=== PATIENT | male | born 1955 | race Caucasian/White ===

== ENCOUNTER 2020-02-16 13:20 | Emergency (ER) | payer MEDICARE, OTHER, SELFPAY ==
[2020-02-16 13:29] VITALS: BP 123/81; PULSE 73; RESP 17; TEMP 36.9; O2SAT 98; BMI 22.1
--- NOTE | 2020-02-16 13:51 | ED_ITS ---
HPI - Arrhythmia/Palpitations General: Chief Complaint: Arrhythmia/Palpitations Stated Complaint: pace maker going off Time Seen by Provider: 02/16/20 13:37 History of Present Illness: HPI narrative: 65-year-old male presents emergency room with complains of a sensation in his chest which refers to the lower left side of the chest last for secondary to associated lightheadedness or dizziness. He had a similar episodes last week and had an interrogation done of his ICD which was negative for any discharges. He feels like it is continue to shock him describes it as a light buzzing or twinge sensation in his left lower chest MD complaint: palpitations Onset (ago): day(s) Duration: intermittent Severity: mild Context: occurred during rest Arrhythmia history: AICD Associated symptoms: Reports no associated symptoms; Deny cough, diaphoresis, muscle cramps, nausea, paresthesias, pre-syncope, sense of impending doom, short of breath, syncope or vomiting Review of Systems Const: Denies: diaphoresis ENMT: Denies: throat pain, ear or mastoid pain, nasal discharge or nasal congestion Card: Denies: syncope or pre-syncope Resp: Denies: dyspnea, productive cough or non-productive cough GI: Denies: nausea or vomiting : Denies: flank pain, dysuria, urinary frequency or urinary urgency Musc: Denies: muscle cramps Skin/Breast: Denies: rash or pruritus PFSH ED PFSH: Medical History (Updated 02/16/20 @ 16:11 by Cezar Lehman DO) Idiopathic cardiomyopathy Normal colonoscopy Right inguinal hernia Surgical History (Updated 02/16/20 @ 13:55 by Cezar Lehman DO) History of implantable cardioverter-defibrillator (ICD) placement S/P tonsillectomy and adenoidectomy Social History (Updated 02/16/20 @ 13:55 by Cezar Lehman DO) Smoking and tobacco status: former smoker Alcohol intake: current Alcohol intake frequency: 0-2 Drinks per Day Physical Exam Const: COMMON NORMALS: no acute distress GENERAL APPEARANCE: cooperative and comfortable ORIENTATION/CONSCIOUSNESS: Yes awake, Yes oriented to person, Yes oriented to place and Yes oriented to time HENMT: COMMON NORMALS: normocephalic, atraumatic and hearing grossly normal bilaterally HEAD & SCALP: normocephalic and atraumatic Eye: COMMON NORMALS: Equal, round and reactive pupils present, EOMs intact bilaterally, conjunctivae normal and no scleral icterus CONJUNCTIVA: Yes conjunctivae normal PUPIL: Yes Equal, round and reactive pupils present Neck/C-Spine: COMMON NORMALS: full ROM, no lymphadenopathy, supple and no JVD Lymph: LYMPHATIC: no lymphadenopathy noted and no lymphedema noted Resp: COMMON NORMALS: normal respiratory effort, No retractions, No use of accessory muscles and clear to auscultation bilaterally AUSCULTATION: clear to auscultation bilaterally Cardio: COMMON NORMALS: no JVD, regular rate, regular rhythm and No murmurs present (Cardio) RATE: regular rate RHYTHM: regular rhythm GI: COMMON NORMALS: Soft to palpation and No hepatosplenomegaly present AUSCULTATION: Yes normoactive bowel sounds PALPATION: Yes Soft to palpation, No Tenderness to palpation present (GI), No Guarding due to palpation present (GI) and Yes No hepatosplenomegaly present Extremity: COMMON NORMALS: normal to inspection, capillary refill normal, no clubbing, cyanosis or edema, no calf tenderness and no pedal edema Neuro: SENSORIUM/ORIENTATION: Yes oriented to person, Yes oriented to place and Yes oriented to time Skin: COMMON NORMALS: no rashes or lesions noted GENERAL SKIN EXAM: no rashes or lesions noted Course Vital Signs: Vital signs: Vital Signs Temperature 98.4 F 02/16/20 13:29 Pulse Rate 60 02/16/20 16:23 Respiratory Rate 20 H 02/16/20 16:23 Blood Pressure 113/81 02/16/20 16:23 Pulse Oximetry 97 02/16/20 16:23 MDM - Arrhythmia/Palpitations MDM Narrative: Medical decision making narrative: Pacemaker interrogated. Pacemaker cutter grind tool technician called he said several small episodes 100 January 03 2 on January 14 2 on January 25 1 in February 04 1 on February 06 1 or 2 on February 12 and then a couple of today between 1242 and 134 all of these events were terminated by pacemaking rather than by defibrillation and were not sustained. These events would have been found on his interrogation done this past SundayFebruary 12. We will go ahead and discharge home have him follow-up with his primary care online content editor next week if he has any worsening or change symptoms or return to the nearest emergency room. Lab Data: Labs: Lab Results 02/16/20 02/16/20 02/16/20 Range/Units 13:52 13:52 13:52 WBC 6.0 (4.0-10.0) 10^3/ uL RBC 4.49 (4.1-5.3) 10^6/u L Hgb 13.8 (11.7-16.6) g/dL Hct 40.6 L (42.0-52.0) % MCV 90.4 (80-94) fL MCH 30.7 (28.0-34.0) pg MCHC 34.0 (30.0-36.0) g/dL RDW 12.0 L (12.1-15.1) % Plt Count 174 (130-400) 10^3/c mm MPV 12.4 H (7.4-10.4) fL Neut % (Auto) 56.3 % Lymph % (Auto) 31.9 % [place] % (Auto) 9.5 % Eos % (Auto) 1.3 % Baso % (Auto) 0.5 % Neut # (Auto) 3.37 (1.8-7.7) 10^3/u L Lymph # (Auto) 1.9 (0.8-4.8) 10^3/u L [place] # (Auto) 0.6 (0.2-0.9) 10^3/u L Eos # (Auto) 0.1 (0.0-0.8) 10^3/u L Baso # (Auto) 0.0 (0.0-0.1) 10^3/u L Nucleated RBC % (a uto) 0 % Nucleated RBCs # 0.0 /100WBC Sodium 136 (136-145) mmol/L Potassium 4.4 (3.5-5.1) mmol/L Chloride 101 (98-107) mmol/L Carbon Dioxide 23 (22-29) mmol/L Anion Gap 16.4 (5-19) BUN 16 (8-23) mg/dL Creatinine 0.7 (0.7-1.2) mg/dL GFR Calculation 112.5 (90-130) mL/min Glucose 99 (65-115) mg/dL Calculated Osmolal ity 278 L (285-295) mOsm/k g Calcium 8.8 (8.5-10.5) mg/dL Total Bilirubin 0.8 (0.15-1.2) mg/dL AST 19 (0-40) U/L ALT 20 (0-41) U/L Alkaline Phosphata se 64 (40-130) IU/L Troponin T Baselin e 8 (0-15) ng/L Troponin T 120 Min [place] (0-15) ng/L Delta Troponin T (0-10) ABS# Total Protein 6.6 (6.6-8.7) g/dL Albumin 4.3 (3.5-5.2) g/dL Globulin 2.3 (1.3-4.6) g/dL 02/16/20 Range/Units 16:20 WBC (4.0-10.0) 10^3/ uL RBC (4.1-5.3) 10^6/u L Hgb (11.7-16.6) g/dL Hct (42.0-52.0) % MCV (80-94) fL MCH (28.0-34.0) pg MCHC (30.0-36.0) g/dL RDW (12.1-15.1) % Plt Count (130-400) 10^3/c mm MPV (7.4-10.4) fL Neut % (Auto) % Lymph % (Auto) % [place] % (Auto) % Eos % (Auto) % Baso % (Auto) % Neut # (Auto) (1.8-7.7) 10^3/u L Lymph # (Auto) (0.8-4.8) 10^3/u L [place] # (Auto) (0.2-0.9) 10^3/u L Eos # (Auto) (0.0-0.8) 10^3/u L Baso # (Auto) (0.0-0.1) 10^3/u L Nucleated RBC % (a uto) % Nucleated RBCs # /100WBC Sodium (136-145) mmol/L Potassium (3.5-5.1) mmol/L Chloride (98-107) mmol/L Carbon Dioxide (22-29) mmol/L Anion Gap (5-19) BUN (8-23) mg/dL Creatinine (0.7-1.2) mg/dL GFR Calculation (90-130) mL/min Glucose (65-115) mg/dL Calculated Osmolal ity (285-295) mOsm/k g Calcium (8.5-10.5) mg/dL Total Bilirubin (0.15-1.2) mg/dL AST (0-40) U/L ALT (0-41) U/L Alkaline Phosphata se (40-130) IU/L Troponin T Baselin e (0-15) ng/L Troponin T 120 Min [place] 6.30 (0-15) ng/L Delta Troponin T -1.70 L (0-10) ABS# Total Protein (6.6-8.7) g/dL Albumin (3.5-5.2) g/dL Globulin (1.3-4.6) g/dL Discharge Plan Discharge Patient Disposition: Home Clinical Impression: Cardiomyopathy, idiopathic, Non-sustained ventricular tachycardia Condition: Stable Prescriptions: No Action aspirin 81 mg Tablet,Delayed Release (Dr/Ec) 81 mg PO DAILY RF: 0 Sotalol AF 120 mg tablet 120 mg PO BID RF: 0 Aldactone 25 mg tablet 25 mg PO DAILY RF: 0 pravastatin 80 mg tablet 40 mg PO QPM RF: 0 losartan 25 mg tablet 25 mg PO DAILY RF: 0 omeprazole 20 mg capsule,delayed release(DR/EC) 20 mg PO DAILY RF: 0 Discharge Orders: Discharge Order (Routine); Ordered 02/16/20 Ordered By: Cezar Lehman Referrals: Brenda Figueroa MD [Primary Care Provider] - Discharge Diet: Usual diet Discharge Activity: Resume usual activity Activity Restrictions/Additional Instructions: Follow-up with your regular online content editor as soon as you are able. Discharge Date/Time: 02/16/20 16:23 Coding Level of Care Code ED Transit Survey Worker for Chg Fwd Exam Comprehensive
[2020-02-16 13:52] VITALS: BP 125/84; PULSE 69; RESP 18; O2SAT 95
--- NOTE | 2020-02-16 14:43 | PC.NURSE ---
Patients pacemaker interrogated at this time.
--- NOTE | 2020-02-16 14:44 | XRR_ITS ---
PROCEDURE INFORMATION: Exam: XR Chest, 1 View Exam date and time: 02/16/2020 3:12 PM Age: 65 years old Clinical indication: Condition or disease; Cardiac pacemaker adjustment and management; Prior surgery; Additional info: Dyspnea/cough TECHNIQUE: Imaging protocol: XR of the chest Views: 1 view. COMPARISON: CR Chest 1 [place] [id number] 07/04/2015 4:59 PM FINDINGS: Lungs: Unremarkable. No consolidation. The lungs are hyperinflated with scattered calcified granulomata. Pleural space: Unremarkable. No pleural effusion. No pneumothorax. Heart/Mediastinum: Unremarkable. No cardiomegaly. A pacemaker device is present, and its leads are in appropriate position. Bones/joints: No acute abnormality. XR/XR chest 1V portable [id number] IMPRESSION: No acute findings.
--- NOTE | 2020-02-16 14:44 | ECG_ITS ---
[facility] Test Date: 2020-02-16 Pat Name: Teofilo Yates Department: Room: Gender: Male Training Instructor: : 1955 Requested By: Cezar Zavaleta Order Number: [id number] Cabrera MD: Kaylie Roger M.D. Measurements Intervals [place] Rate: 59 P: 256 NC: 188 QRS: 19 QRSD: 90 T: 72 QT: 431 QTc: 430 Interpretive Statements ELECTRONIC ATRIAL PACEMAKER LOW QRS VOLTAGE IN PRECORDIAL LEADS [QRS DEFLECTION < 1.0 mV IN CHEST LEADS] NONSPECIFIC T-WAVE ABNORMALITY ABNORMAL RHYTHM ECG Compared to ECG 07/04/2015 16:39:07 Low QRS voltage now present T-wave abnormality now present Sinus bradycardia no longer present ST (T wave) deviation no longer present Electronically Signed On 02-17-2020 17:15:34 CDT by Kaylie Roger M.D. [id number]
[2020-02-16 15:26] LABS: Basophils % 0.5 %; Eosinophils # 0.1 10^3/uL (0.0-0.8); Eosinophils % 1.3 %; Hematocrit 40.6 % (42.0-52.0); Hemoglobin 13.8 g/dL (11.7-16.6); Lymphocytes # 1.9 10^3/uL (0.8-4.8); Lymphocytes % 31.9 %; Mean Corpuscular Hemoglobin 30.7 pg (28.0-34.0); Mean Corpuscular Volume 90.4 fL (80-94); Mean Platelet Volume 12.4 fL (7.4-10.4); Monocytes # 0.6 10^3/uL (0.2-0.9); Monocytes % 9.5 %; Neutrophils # 3.37 10^3/uL (1.8-7.7); Neutrophils % 56.3 %; Nucleated Red Blood Cells % 0 %; Platelet Count 174 10^3/cmm (130-400); Red Blood Count 4.49 10^6/uL (4.1-5.3)
[2020-02-16 16:00] LABS: Alanine Aminotransferase 20 U/L (0-41); Albumin Level 4.3 g/dL (3.5-5.2); Alkaline Phosphatase 64 IU/L (40-130); Blood Urea Nitrogen 16 mg/dL (8-23); Calcium 8.8 mg/dL (8.5-10.5); Carbon Dioxide 23 mmol/L (22-29); Chloride 101 mmol/L (98-107); Globulin 2.3 g/dL (1.3-4.6); Glomerular Filtration Rate 112.5 mL/min (90-130); Glucose 99 mg/dL (65-115); Osmolality Calculated 278 mOsm/kg (285-295); Sodium 136 mmol/L (136-145); Total Bilirubin 0.8 mg/dL (0.15-1.2); Total Protein 6.6 g/dL (6.6-8.7)
[2020-02-16 16:01] LABS: Troponin(5th) Baseline 8 ng/L (0-15)
[2020-02-16 16:03] LABS: Anion Gap 16.4 (5-19); Aspartate Amino Transferase 19 U/L (0-40); Potassium 4.4 mmol/L (3.5-5.1)
[2020-02-16 16:09] VITALS: BP 110/72; PULSE 60; RESP 19; O2SAT 97
[2020-02-16 16:23] VITALS: BP 113/81; PULSE 60; RESP 20; O2SAT 97
--- NOTE | 2020-02-16 16:44 | ECG_ITS ---
[facility] Test Date: 2020-02-16 Pat Name: Teofilo Yates Department: Room: Gender: Male Rehabilitation Counselor: : 1955 Requested By: Cezar Zavaleta Order Number: [id number] Rick MD: Kaylie Roger M.D. Measurements Intervals [place] Rate: 83 P: 54 MI: 157 QRS: 37 QRSD: 89 T: 61 QT: 393 QTc: 464 Interpretive Statements SINUS RHYTHM WITH OCCASIONAL VENTRICULAR PREMATURE COMPLEXES Compared to ECG 07/04/2015 16:39:07 Ventricular premature complex(es) now present Sinus bradycardia no longer present ST (T wave) deviation no longer present Electronically Signed On 02-17-2020 17:39:37 CDT by Kaylie Roger M.D. [id number]
== END 2020-02-16 16:23 | disposition home or self-care (01) ==
PROVIDERS: Emergency Provider Family Medicine; PCP Family Medicine
DX: I47.2 Ventricular tachycardia (principal); I42.8 Other cardiomyopathies; Z79.82 Long term (current) use of aspirin; Z95.810 Presence of automatic (implantable) cardiac defibrillator; Z87.891 Personal history of nicotine dependence
CPT/HCPCS: 12345; 71045; 80053; 84484; 85025; 93005; 99283

== ENCOUNTER 2022-02-14 08:42 | Outpatient (CLI) | payer MEDICARE, OTHER, SELFPAY ==
[2022-02-14 09:38] LABS: INR 1.39 (0.8-1.2)
== END 2022-02-14 08:43 | disposition home or self-care (01) ==
PROVIDERS: PCP Family Medicine; Visit Provider Internal Medicine Clinical Cardiac Electrophysiology
DX: Z79.01 Long term (current) use of anticoagulants (principal)
CPT/HCPCS: 36415; 85610

== ENCOUNTER 2022-02-17 08:21 | Outpatient (CLI) | payer MEDICARE, OTHER, SELFPAY ==
[2022-02-17 08:57] LABS: INR 2.36 (0.8-1.2)
== END 2022-02-17 08:22 | disposition home or self-care (01) ==
PROVIDERS: PCP Family Medicine; Visit Provider Internal Medicine Clinical Cardiac Electrophysiology
DX: Z79.01 Long term (current) use of anticoagulants (principal)
CPT/HCPCS: 36415; 85610

== ENCOUNTER 2022-02-20 08:28 | Outpatient (CLI) | payer MEDICARE, OTHER, SELFPAY | END 2022-02-20 08:29 | disposition home or self-care (01) | PROVIDERS: PCP Family Medicine; Visit Provider Internal Medicine Clinical Cardiac Electrophysiology | DX: Z79.01 Long term (current) use of anticoagulants (principal) | CPT/HCPCS: 85610 ==

== ENCOUNTER 2022-02-27 07:59 | Outpatient (CLI) | payer MEDICARE, OTHER, SELFPAY | END 2022-02-27 08:00 | disposition home or self-care (01) | PROVIDERS: PCP Family Medicine; Visit Provider Internal Medicine Clinical Cardiac Electrophysiology | DX: I48.91 Unspecified atrial fibrillation (principal); Z79.01 Long term (current) use of anticoagulants | CPT/HCPCS: 36415; 85610 ==

== ENCOUNTER 2022-03-01 08:42 | Outpatient (CLI) | payer MEDICARE, OTHER, SELFPAY ==
[2022-03-01 09:29] LABS: INR 3.49 (0.8-1.2)
== END 2022-03-01 08:43 | disposition home or self-care (01) ==
LOC: LAB 08:45
PROVIDERS: PCP Family Medicine; Visit Provider Internal Medicine Clinical Cardiac Electrophysiology
DX: I48.91 Unspecified atrial fibrillation (principal); Z79.01 Long term (current) use of anticoagulants
CPT/HCPCS: 85610

== ENCOUNTER 2022-11-30 12:11 | Outpatient (CLI) | payer MEDICARE, OTHER, SELFPAY ==
--- NOTE | 2022-11-30 12:24 | XR_ITS ---
WS: [id number] EXAMINATION: XR chest 2V* [id number] REASON FOR EXAM: BRONCHITIS COMPARISON: 04/05/2011 ORDER DATE: 11/30/2022 12:27 PM FINDINGS: The lungs are clear of infiltrate. There is an 8 mm noncalcified nodular density below the hilar le riki visualized only on the lateral projection which could be slightly more prominent than on the prio r lateral chest view on 04/05/2011 but was less distinct on the prior study. ICD is noted on the left . The cardiac and mediastinal outlines are unremarkable except for atherosclerotic aortic change.. Th ere are no significant pleural effusions . No significant abnormalities are noted in the spine or rem ainder of the bony thorax. XR/XR chest 2V* [id number] IMPRESSION: NO ACUTE PULMONARY CHANGE. POSSIBLE CHANGE IN A PULMONARY NODULE SEEN ONLY ON T HE LATERAL VIEW NOTED ABOVE. MAY CONSIDER CHEST CT IMAGING FOR FURTHER ASSES SMENT
== END 2022-11-30 12:12 | disposition home or self-care (01) ==
PROVIDERS: PCP Family Medicine; Visit Provider Family Medicine
DX: J40 Bronchitis, not specified as acute or chronic (principal); J98.01 Acute bronchospasm
CPT/HCPCS: 71046

== ENCOUNTER 2025-04-16 11:56 | Outpatient (CLI) | payer OTHER, SELFPAY | END 2025-04-16 11:57 | disposition home or self-care (01) | LOC: SLEEP 12:00 | PROVIDERS: PCP Family Medicine; Referring Provider Family Medicine; Visit Provider Internal Medicine Pulmonary Disease | DX: G47.33 Obstructive sleep apnea (adult) (pediatric) (principal) | CPT/HCPCS: G0399 ==